=== PATIENT | female | born 1970 | race Caucasian/White ===

== ENCOUNTER 2018-01-21 13:52 | Emergency (ER) | payer OTHER ==
[~2018-01-21] VITALS: Ht 167.6 cm; Wt 74.8 kg
[~2018-01-21 13:52] MED LIST: AMLODIPINE BESYL5 M1 PO; HYDROXYZINE HCL50 M1 PO; KLOR-CON M2020 ME1 PO; LASIX20 M1 PO; LORAZEPAM1 M1 PO; PROAIR HFA8.5 GM INH; TOPAMAX50 M1 PO; TRAMADOL HCL50 M1 PO
[2018-01-21] MEDS ORDERED: ATORVASTATIN CA20 M1 PO (14:30)
[2018-01-21] MEDS ORDERED: LEVOTHYROXINE50 MCG PO (14:30)
[2018-01-21] MEDS ORDERED: METOCLOPRAMIDE H5 MG PO (14:31)
[2018-01-21] MEDS ORDERED: LYRICA75 M1 PO (14:32)
[2018-01-21 14:33] LABS: ABSOLUTE BASOPHIL COUNT 0.1 /CUMM (0.0-0.2); ABSOLUTE EOSINOPHIL COUNT 0.3 /CUMM (0.0-0.7); ABSOLUTE GRANULOCYTE CT 6.3 /CUMM (1.4-6.5); ABSOLUTE LYMPH COUNT 2.5 /CUMM (1.2-3.4); ABSOLUTE MONOCYTE COUNT 0.5 /CUMM (0.10-0.60); BASOPHIL % 0.8 % (0.0-2.0); EOSINOPHIL % 2.8 % (0-5); GRANULOCYTE % 65.4 % (42.2-75.2); HEMATOCRIT 44.7 % (37-47); MEAN CORPUSCULAR HGB 31.7 PG (27.0-31.0); MEAN CORPUSCULAR HGB CONC 34.7 G/DL (33.0-37.0); MEAN CORPUSCULAR VOLUME 91.5 FL (81.0-99.0); MEAN PLATELET VOLUME 7.4 FL (7.4-10.4); RBC DISTRIBUTION WIDTH 14.3 % (11.5-14.5); RED BLOOD CELL CT 4.88 /CUMM (4.20-5.40); WHITE BLOOD CELL COUNT 9.6 /CUMM (4.8-10.8)
[2018-01-21 14:41] LABS: PT 10.8 SEC (9.4-12.5); PTT 30 SEC (25-37)
[2018-01-21 14:53] LABS: PLATELET COUNT 237 /CUMM (130-400)
--- NOTE | 2018-01-21 14:53 | CT SCAN REPORT ---
EXAMINATION: CT HEAD WITHOUT CONTRAST CLINICAL INFORMATION: Headache. Left-sided weakness. History of TIAs. COMPARISON: None. TECHNIQUE: Contiguous axial imaging was performed from the skull base to vertex without intravenous administration of contrast. DLP: 623.98 mGy-cm FINDINGS: There is no evidence of acute intracranial hemorrhage or territorial infarction. No abnormal mass effect or midline shift is seen. [place] to white matter differentiation is well preserved. No extra-axial fluid collections are identified. The ventricles are normal in size. There is no abnormal attenuation within the brain parenchyma. The osseous structures and soft tissues are normal. The mastoid air cells and visualized portions of the paranasal sinuses are well aerated. IMPRESSION: 1. There are no acute bleeds or territorial infarcts. No masses are demonstrated. 2. The mastoid air cells and visualized paranasal sinuses are well-aerated.
--- NOTE | 2018-01-21 15:06 | ED HEADACHE COMPLAINT ---
History of Present Illness General Chief Complaint: General Adult Stated Complaint: LEFT SIDE WEAKNESS/CHEST PAIN Source: patient Exam Limitations: no limitations Vital Signs & Intake/Output Vital Signs & Intake/Output Vital Signs Date Time Temp Pulse Resp B/P B/P Pulse O2 O2 Flow FiO2 Mean Ox Delivery Rate 01/219 98.0 68 16 135/80 98 Room Air Room Air 01/21 1522 70 18 147/79 99 Room Air 01/21 1521 98 Room Air Room Air ED Intake and Output 01/22 0000 01/21 1200 Intake Total 200 Output Total Balance 200 Intake, IV 200 Patient 165 lb Weight Weight Reported by Patient Measurement Method Allergies Coded Allergies: No Known Allergies (12/11/16) Reconcile Medications Albuterol Sulfate (Proair Hfa) 90 MCG HFA.AER.AD 2 PUF INH Q4-6 PRN PRN sob Atorvastatin Calcium 20 MG TABLET 1 TAB PO DAILY CHOLESTEROL (Reported) Ketorolac Tromethamine 10 MG TABLET 1 TAB PO Q6P PRN HEADACHE RECIUEVED IV HERE Levothyroxine Sodium 50 MCG TABLET 1 TAB PO DAILY AC THYROID (Reported) Lorazepam 1 MG TABLET 1 TAB PO 4 TIMES/DAY ANXIETY (Reported) Metoclopramide HCl 5 MG TABLET 1 TAB PO DAILY PRN NAUSEA/VOMITING (Reported) Pregabalin (Lyrica) 75 MG CAPSULE 1 CAP PO BID PAIN (Reported) Topiramate (Topamax) 50 MG TABLET 1.5 TAB PO BID ANXIETY (Reported) Triage Note: 47 YO FEMALE C/O MIGRAINE HEADACHE X 3 DAYS. STATES "I HAVE A HX HEMIPLEGIC MIGRAINES AND TIA". PT STATES SHE WAS RECENTLY ADMITTED AND D/GOMEZ FROM [facility] FOR SAME. STATES MIGRAINE NEVER FULLY WENT AWAY AND TODAY PT FEELS "LIKE ITS GETTING WORSE". C/O L SIDED PARALYSIS WELL. SPEAKING CLEARLY WITH NO DEFICITS NOTED. FACIAL SYMMETRY PRESENT. EKG COMPLETED. EVAL BY ARANZA JC IN TRIAGE Triage Nurses Notes Reviewed? yes Onset: Gradual Duration: week(s): (4), constant, continues in ED, getting worse Timing: recent history Quality/Severity: severe, pressure, throbbing Severity Numbers: 10 Head Injury Location: frontal No Modifying Factors: none Associated Symptoms: numbness in legs/feet, weakness LMP (ages 10-50): unknown : No Patient currently breastfeeds: No HPI: 47-year-old female past medical history of hemiplegic migraines presents for evaluation of a headache and left-sided weakness. Patient reports that she was admitted to [facility] on January 02 and stayed for 3 days with similar symptoms. At that time she had a severe headache and left-sided hemiplegia. She had a workup that was negative for CVA and was treated symptomatically with resolution of her hemiplegia symptoms after several days. Patient reports that her headache and never resolved and has continued to get worse. The pain is located in the bilateral frontal aspects described as throbbing pressure. She reports that the hemiplegia symptoms began to return 3 days ago initially with numbness in the left side of her face and left upper extremity. She states that today around 12:30 she began to notice weakness in the left upper extremity and left lower extremity she is able to walk and feels like her left leg is heavy. She denies slurred speech changes in vision fevers head trauma or neck pain. She also notes she has had a cough shortness of breath and chest pain over the past several days. The chest pain is worse with coughing and deep inspiration. No hemoptysis no lower extremity edema. No history of DVT or PE. No recent surgeries. Patient was discharged from [facility] with Imitrex which she's been taking without improvement she's also been taking Fioricet dexamethasone and ibuprofen with no improvement she reports that morphine and IV magnesium has helped in the past. She does report photophobia. Patient reports she has had similar symptoms multiple times. The headache she has today is similar to previous in terms of location this is not the worse headache of her life. She notes that usually once a year she'll get these episodes of hemiplegia. This is the first time it has happened twice within 1 month. (Yoel Blunt) Past History Travel History Traveled to [place] past 21 day No Medical History Any Pertinent Medical History? see below for history Neurological: migraine EENT: NONE Cardiovascular: NONE Respiratory: NONE Gastrointestinal: irritable bowel syndrome Hepatic: NONE Renal: NONE Musculoskeletal: NONE Psychiatric: NONE Endocrine: NONE Blood Disorders: NONE Cancer(s): NONE SHOE CEMENTER/Reproductive: NONE Surgical History Surgical History: none Psychosocial History What is your primary language Danish Tobacco Use: Never used Family History Hx Contributory? No (Yoel Blunt) Review of Systems Review of Systems Constitutional: Reports: no symptoms. Eyes: Reports: no symptoms. Ears, Nose, Throat, Mouth: Reports: no symptoms. Respiratory: Reports: no symptoms. Cardiovascular: Reports: no symptoms. Gastrointestinal/Abdominal: Reports: no symptoms. Genitourinary: Reports: no symptoms. Musculoskeletal: Reports: no symptoms. Skin: Reports: no symptoms. Neurological/Psychological: Reports: see HPI, headache, numbness, paresthesia, tingling, weakness. Hematologic/Endocrine: Reports: no symptoms. Endocrine: Reports: no symptoms. Immunologic/Allergic: Reports: no symptoms. All Other Systems: Reviewed and Negative (Yoel Blunt) Physical Exam Physical Exam General Appearance: well developed/nourished, no apparent distress, alert, awake Head: atraumatic, normal appearance Eyes: Bilateral: normal appearance, PERRL, EOMI. Ears, Nose, Throat: normal pharynx, normal ENT inspection, hearing grossly normal Neck: normal inspection, supple, full range of motion, NO MENINGISMUS Respiratory: normal breath sounds, lungs clear, CHEST WALL TENDERNESS TO PALPATION OVER THE BILATERAL ANTERIOR CHEST NO BRUISING SWELLING OR ABRASIONS Cardiovascular: regular rate/rhythm, normal peripheral pulses Gastrointestinal: soft, non-tender Back: normal inspection, normal range of motion, no vertebral tenderness, NO CVAT Extremities: normal inspection, no edema, SEE NEURO EXAM Psychiatric: awake, alert, oriented x 3 Cranial Nerves: normal hearing, normal speech, PERRL Coordination/Gait: normal finger to nose, normal gait, NORMAL ROMBERG Motor/Sensory: weak motor strength LUE, weak motor strength LLE, LEFT UPPER EXTREMITY STRENGTH 4 OUT OF 5 LEFT LOWER EXTREMITY STRENGTH 4 OUT OF 5 RIGHT UPPER AND LOWER EXTREMITIES ARE 5 OUT OF 5 Skin: intact, normal color, warm/dry Lymphatic: no anterior cervical jennifer Core Measures Sepsis Present: No Sepsis Focused Exam Completed? No (Yoel Blunt) Progress Differential Diagnosis: cluster DUMAS, encephalitis, IC mass/tumor, intracranial Hem., meningitis, migraine DUMAS, subarach. Hem., tension DUMAS, CVA/TIA Plan of Care: Orders Procedure Date/time Status URINE DRUGS OF ABUSE 01/21 1402 Complete TROPONIN LEVEL 01/21 1402 Complete PARTIAL THROMBOPLASTIN TIME 01/21 1402 Complete PROTHROMBIN TIME 01/21 1402 Complete HUMAN BETA HCG SCREEN 01/21 1402 Complete D-DIMER 01/21 1402 Complete COMPREHENSIVE METABOLIC PANEL 01/21 1402 Complete CBC WITHOUT DIFFERENTIAL 01/21 1402 Complete EKG 01/21 1354 Active Laboratory Tests 01/21/18 1605: Urine Opiates Screen 2859.00 H, Methadone Screen < 40, Barbiturate Screen 631 H, Ur Phencyclidine Scrn < 6.00, Amphetamines Screen < 100, U Benzodiazepines Scrn < 85, Urine Cocaine Screen < 50, Urine Cannabis Screen < 5.00 01/21/18 1419: Anion Gap 16, Estimated GFR > 60, BUN/Creatinine Ratio 21.4, Glucose 100 H, Calcium 10.2, Total Bilirubin 0.4, AST 49 H, ALT 89 H, Alkaline Phosphatase 134 H, Troponin I < 0.01, Total Protein 7.7, Albumin 4.8, Globulin 2.9, Albumin /Globulin Ratio 1.7, Total Beta HCG NEGATIVE, PT 10.8, INR 0.99, APTT 30, D- Dimer High Sensitivty 447 H, CBC w Diff NO MAN DIFF REQ, RBC 4.88, MCV 91.5, MCH 31.7 H, MCHC 34.7, RDW 14.3, MPV 7.4, Gran % 65.4, Lymphocytes % 26.2, Monocytes % 4.8, Eosinophils % 2.8, Basophils % 0.8, Absolute Granulocytes 6.3, Absolute Lymphocytes 2.5, Absolute Monocytes 0.5, Absolute Eosinophils 0.3, Absolute Basophils 0.1 Patient is here for evaluation of headaches and left upper and lower extremity weakness. Patient reports she has had a headache since she was admitted to [facility] at the end of December. During that admission she also had left-sided hemiplegia. She reports her headache never went away and the hemiplegia resolved after 3 days initially but then returned starting today at 12:30. On exam she does have 4 out of 5 strength to the left upper and lower extremities. Her cranial nerves are intact although she does report some numbness to the left side of the face this is not detectable on examination of the 3 branches of the trigeminal nerve. Head CT is negative. Patient has no slurred speech changes in vision facial droop. Case was discussed with on-call neurologist Dr. Ivan who does not feel this represents a acute stroke. However An MRI of the brain will be obtained for further evaluation given the patient's concerning presentation. Patient was medicated with magnesium and morphine which she reports has helped in the past. Patient is also here with cough shortness of breath and chest pain has been going on for the past 3 or 4 days. The chest pain is reproducible with coughing and palpation of the chest. Labs EKG ordered. Patient was medicated with aspirin. Blood work shows an elevated d-dimer 447 a CTA will be obtained. Patient also has a mild transaminitis. On reevaluation of the patient is being medicated she reports some improvement in her headache. She appears clinically well and comfortable. Repeat neurologic exam continues to show 4 out of 5 strength in the left upper and lower extremity. Patient is able to walk with a steady slow gait. Patient was repeatLY reevaluated with neuro checks and reports persistent headache. She was medicated with IV Toradol and reported improvement. She also feels improvement of her neurologic symptoms including the left sided weakness. CTA of the chest is negative for PE troponin negative. MRI of the brain is negative. Patient reports improvement in her headache and weakness. Patient has had these symptoms on multiple occasions. Discussed with patient about staying in the hospital for observation to rule out TIA however patient would rather go home she reports she went to sleep in her own bed she is alert and oriented 3 she understands the risks of a stroke including permanent disability or . Patient was instructed to follow-up with her primary care doctor and neurologist. She was given a prescription for Toradol to go home with. Also instructed to start an aspirin regimen. Discussed return precautions in detail. Case discussed with Dr. Reina he agrees Diagnostic Imaging: Viewed by Me: MRI. Discussed w/RAD: MRI. Radiology Impression: PATIENT: MARY MAHARAJ PRESENT AGE: 47 PATIENT ACCOUNT NO: [id number] : 68 LOCATION: [facility] ORDERING PHYSICIAN: Yoel COBIAN SERVICE DATE: 01/21/18-4000 EXAM TYPE: MRI - MRI-HEAD W/O DELILAH EXAMINATION: MR BRAIN WITHOUT CONTRAST CLINICAL INFORMATION: Left facial numbness. COMPARISON: Head CT from earlier in the same day. TECHNIQUE: Multiplanar, multisequence imaging of the brain was performed without contrast. FINDINGS: No diffusion abnormalities are identified to suggest an acute or subacute infarct. The ventricles are normal in size. No mass effect or midline shift is seen. No brain parenchymal signal abnormality is noted. No extra-axial fluid collections are seen. The brainstem and cerebellum are normal. The gradient refocused acquisition demonstrates no pathologic magnetic susceptibility artifact to indicate underlying acute or chronic blood products. The craniovertebral junction, marrow signal, and midline structures are normal. The major intracranial flow voids at the level of the [place] are preserved. The dural venous sinus flow voids are maintained. The mastoid air cells and paranasal sinuses are well aerated. IMPRESSION: No acute intracranial process. Normal MRI of the brain. DICTATED BY: Hermes Jacobsen MD DATE/TIME DICTATED:01/21/181912 MARINE FIREMAN:GUZMAN DATE/TIME TRANSCRIBED:1912 CONFIDENTIAL, DO NOT COPY WITHOUT APPROPRIATE AUTHORIZATION. < Electronically signed in Other Vendor System> SIGNED BY: Hermes Jacobsen MD 01/21/181918, PATIENT: MARY MAHARAJ PRESENT AGE: 47 PATIENT ACCOUNT NO: [id number] : 68 LOCATION: [facility] ORDERING PHYSICIAN: Ruben COBIAN SERVICE DATE: 01/21/18 EXAM TYPE: CAT - CT HEAD WO IV CONTRAST EXAMINATION: CT HEAD WITHOUT CONTRAST CLINICAL INFORMATION: Headache. Left-sided weakness. History of TIAs. COMPARISON: None. TECHNIQUE: Contiguous axial imaging was performed from the skull base to vertex without intravenous administration of contrast. DLP: 623.98 mGy-cm FINDINGS: There is no evidence of acute intracranial hemorrhage or territorial infarction. No abnormal mass effect or midline shift is seen. [place] to white matter differentiation is well preserved. No extra-axial fluid collections are identified. The ventricles are normal in size. There is no abnormal attenuation within the brain parenchyma. The osseous structures and soft tissues are normal. The mastoid air cells and visualized portions of the paranasal sinuses are well aerated. IMPRESSION: 1. There are no acute bleeds or territorial infarcts. No masses are demonstrated. 2. The mastoid air cells and visualized paranasal sinuses are well-aerated. DICTATED BY: Chiki Perera MD DATE/TIME DICTATED:1445 MARINE FIREMAN:GUZMAN DATE/TIME TRANSCRIBED:01/21/181445 CONFIDENTIAL, DO NOT COPY WITHOUT APPROPRIATE AUTHORIZATION. <Electronically signed in Other Vendor System> SIGNED BY: Chiki Perera MD 01/21/181452, PATIENT: MARY MAHARAJ PRESENT AGE: 47 PATIENT ACCOUNT NO: [id number] : 68 LOCATION: [facility] ORDERING PHYSICIAN: Yoel COBIAN SERVICE DATE: 01/21/18 EXAM TYPE: CAT - CTA CHEST-PULMONARY EMBOLISM EXAMINATION: CT CHEST PE STUDY CLINICAL INFORMATION: Chest pressure, shortness of breath, cough. Presumptive diagnosis of PE, pneumonia. COMPARISON: CT of the chest dated 12/11/2016. TECHNIQUE: Prior to contrast administration, localization images were obtained. After the administration of 95 mL of intravenous Optiray 320, multidetector CT volume acquisition of the chest was performed. 3-D postprocessing was performed with multiplanar reconstructions and MIP images obtained at the acquisition workstation under concurrent physician supervision. DLP: 246.80 mGy-cm. FINDINGS: Pulmonary arteries: The bolus timing on this study is suboptimal for visualization of the pulmonary arterial tree and there are several stairstep and beam hardening artifacts seen projected over the central vessels, especially in the right upper lobe, producing artifactual filling defects and limiting assessment. Within these limitations, however, there are no suspicious intraluminal pulmonary arterial filling defects seen to suggest pulmonary embolism in the main pulmonary artery, right and left main pulmonary artery, lobar and proximal segmental branches. Lungs: Dependent atelectatic changes are seen bilaterally. No pulmonary nodules, masses, pleural effusion or pneumothorax. The central airways are patent. Aorta and heart: The heart is normal in size. No evidence of leftward shift of the interatrial or interventricular septum is seen. The ascending aorta is ectatic, measuring 3.8 cm in maximal AP diameter at the pulmonary arterial bifurcation. There is no pericardial effusion Lymphatic structures: There is no lymphadenopathy. Upper abdomen: Limited evaluation of the upper abdominal viscera demonstrates no focal abnormality. No reflux of contrast into the IVC is seen. Bones: There is a convex right thoracic scoliosis. No significant focal findings. IMPRESSION: 1. Mildly limited exam. However, no convincing evidence of pulmonary embolism. 2. Mild dependent atelectasis in the lungs bilaterally. 3. Ectatic ascending aorta. VTE: Negative DICTATED BY: Patrizia Pena MD DATE/TIME DICTATED:01/21/181645 MARINE FIREMAN:JONEL DATE/TIME TRANSCRIBED:01/21/181645 CONFIDENTIAL, DO NOT COPY WITHOUT APPROPRIATE AUTHORIZATION. <Electronically signed in Other Vendor System> SIGNED BY: Patrizia Pena MD 01/21/18 8847 Initial ED EKG: normal sinus rhythm, nonspecific ST T wave chg (ANTERIOR), LEFT ATRIAL ABN (Yoel Blunt) Departure Departure Disposition: HOME OR SELF CARE Condition: Stable Clinical Impression Primary Impression: Hemiplegic migraine Qualifiers: Status migrainosus presence: without status migrainosus Intractability: not intractable Qualified Code: G43.409 - Hemiplegic migraine, not intractable, without status migrainosus Referrals: Jonathan DEL VALLE,Eduard Rob (PCP/Family) Jamal DEL VALLE,Jean Tay Additional Instructions: Toradol (KETORLAC) as directed. Continue Imitrex. Follow-up with neurologist. Monitor symptoms return with any concerns. Please go over all results of today's visit with your primary care doctor. Contact your primary care doctor to let them know you were here in the emergency room. There may be nonspecific findings which may not be related to your visit today here in the emergency room but may require further evaluation and chronic monitoring by your primary care doctor. If you had a laceration today the chance of foreign body always remains. You should follow-up with your primary care doctor for recheck in 3-5 days for a wound check. If you had an x-ray done there is a chance that a fracture could have been missed on initial read and you should follow-up with your primary care doctor for repeat x-rays if symptoms persist. If your blood pressure was elevated here in the emergency room please have rechecked by [facility] primary care doctor within the next 48. If you were prescribed a narcotic here in the emergency room or any type of controlled substances you're not allowed to drive while taking this medication or operate any type of heavy machinery. Narcotics can make you feel lightheaded dizziness nausea and can cause constipation. You may need to diamond picker a stool softener. Thank you for choosing [facility] emergency room. Please return to the emergency room immediately if you have any other concerns worsening of symptoms. Departure Forms: Customer Survey General Discharge Information Prescriptions: Current Visit Scripts Ketorolac Tromethamine 1 TAB PO Q6P PRN HEADACHE RECIUEVED IV HERE #20 TAB (Yoel Blunt) PA/GRAIN ELEVATOR MAN Co-Sign Statement Statement: ED Attending supervision documentation- [] I saw and evaluated the patient. I have also reviewed all the pertinent lab results and diagnostic results. I agree with the findings and the plan of care as documented in the PA's/GRAIN ELEVATOR MAN's documentation. [x] I have reviewed the ED Record and agree with the PA's/GRAIN ELEVATOR MAN's documentation. [] Additions or exceptions (if any) to the PAs/GRAIN ELEVATOR MAN's note and plan are summarized below: [] (Nuno DEL VALLE,Hermes Alcala) ED Attending Observation Initial Observation Note: I have seen and personally examined MARY MAHARAJ on 01/21/18 at 1522. I agree with the current emergency department documentation. The disposition (admission or discharge) is uncertain at this time, she needs a period of observation for the following reason(s): The ED Nurse caring for this patient has been personally informed as to what the patient is being observed for. ([place] COBIAN,Yoel)
--- NOTE | 2018-01-21 17:06 | CT SCAN REPORT ---
EXAMINATION: CT CHEST PE STUDY CLINICAL INFORMATION: Chest pressure, shortness of breath, cough. Presumptive diagnosis of PE, pneumonia. COMPARISON: CT of the chest dated 12/11/2016. TECHNIQUE: Prior to contrast administration, localization images were obtained. After the administration of 95 mL of intravenous Optiray 320, multidetector CT volume acquisition of the chest was performed. 3-D postprocessing was performed with multiplanar reconstructions and MIP images obtained at the acquisition workstation under concurrent physician supervision. DLP: 246.80 mGy-cm. FINDINGS: Pulmonary arteries: The bolus timing on this study is suboptimal for visualization of the pulmonary arterial tree and there are several stairstep and beam hardening artifacts seen projected over the central vessels, especially in the right upper lobe, producing artifactual filling defects and limiting assessment. Within these limitations, however, there are no suspicious intraluminal pulmonary arterial filling defects seen to suggest pulmonary embolism in the main pulmonary artery, right and left main pulmonary artery, lobar and proximal segmental branches. Lungs: Dependent atelectatic changes are seen bilaterally. No pulmonary nodules, masses, pleural effusion or pneumothorax. The central airways are patent. Aorta and heart: The heart is normal in size. No evidence of leftward shift of the interatrial or interventricular septum is seen. The ascending aorta is ectatic, measuring 3.8 cm in maximal AP diameter at the pulmonary arterial bifurcation. There is no pericardial effusion Lymphatic structures: There is no lymphadenopathy. Upper abdomen: Limited evaluation of the upper abdominal viscera demonstrates no focal abnormality. No reflux of contrast into the IVC is seen. Bones: There is a convex right thoracic scoliosis. No significant focal findings. IMPRESSION: 1. Mildly limited exam. However, no convincing evidence of pulmonary embolism. 2. Mild dependent atelectasis in the lungs bilaterally. 3. Ectatic ascending aorta. VTE: Negative
--- NOTE | 2018-01-21 19:19 | MRI REPORT ---
EXAMINATION: MR BRAIN WITHOUT CONTRAST CLINICAL INFORMATION: Left facial numbness. COMPARISON: Head CT from earlier in the same day. TECHNIQUE: Multiplanar, multisequence imaging of the brain was performed without contrast. FINDINGS: No diffusion abnormalities are identified to suggest an acute or subacute infarct. The ventricles are normal in size. No mass effect or midline shift is seen. No brain parenchymal signal abnormality is noted. No extra-axial fluid collections are seen. The brainstem and cerebellum are normal. The gradient refocused acquisition demonstrates no pathologic magnetic susceptibility artifact to indicate underlying acute or chronic blood products. The craniovertebral junction, marrow signal, and midline structures are normal. The major intracranial flow voids at the level of the [place] are preserved. The dural venous sinus flow voids are maintained. The mastoid air cells and paranasal sinuses are well aerated. IMPRESSION: No acute intracranial process. Normal MRI of the brain.
[2018-01-21 19:29] VITALS: BP 135/80
[2018-01-21] MEDS ORDERED: KETOROLAC TROME10 M1 PO (20:12)
== END 2018-01-21 20:26 ==
LOC: ERH 13:52
PROVIDERS: Physician Assistant Medical
DX: G43.409 Hemiplegic migraine, not intractable, without status migrainosus (principal); R53.1 Weakness
CPT/HCPCS: 70551; 80307; 93005; 93010; 96365; 96366; 96375; 96376